=== PATIENT | female | born 1975 | race Caucasian/White ===

== ENCOUNTER 2016-11-10 08:42 | Emergency (ER) | payer BC, OTHER ==
--- NOTE | 2016-11-10 11:37 | RAD ---
Indication: Abdominal pain. Abnormal LFTs. Comparison: July 21, 2015 RIGHT upper quadrant ultrasound. Technique: RIGHT upper quadrant ultrasound. Report: Appropriate direction flow documented in the portal and hepatic veins. 18.2 cm cephalocaudal liver is grossly normal in echotexture and without evidence for focal lesions or biliary dilatation. 3.7 mm common bile duct. Adequately distended gallbladder with normal 2 mm wall is without pathologic finding. The patient felt nauseous while scanning over the gallbladder. Unremarkable pancreas. Negative for ascites. Unremarkable 11.9 cm RIGHT kidney. IMPRESSION: No objective sonographic evidence for gallbladder pathology. The patient did feel nauseous while scanning over the gallbladder. Unremarkable liver.
[2016-11-10 12:00] LABS: Hematocrit 40 % (35-47); Hemoglobin 13.6 g/dl (12.0-16.0); Mean Corpuscular HGB Conc 34 g/dl (31-36); Mean Corpuscular Hemoglobin 31 pg (27-31); Mean Corpuscular Volume 92 fL (80-97); Mean Platelet Volume 7 um3 (7.4-10.4); Red Blood Count 4.33 10^6/ul (4.0-5.4); Red Cell Distribution Width 14 % (10.5-15); White Blood Count 6.9 10^3/ul (3.5-10.8)
[2016-11-10 12:01] LABS: Urine Bilirubin Negative (Negative); Urine Glucose Negative (Negative); Urine Nitrite Negative (Negative)
[2016-11-10 12:27] LABS: Albumin 3.9 g/dL (3.2-5.2); BUN/Creatinine Ratio 11.3 (8-20); C Reactive Protein 3.41 mg/L (< 5.00); Calcium 9.4 mg/dL (8.6-10.3); EGFR African American 117.9 (>60); EGFR Non-African American 91.6 (>60); Globulin 3.3 g/dL (2-4); Potassium 3.5 mmol/L (3.5-5.0); Total Bilirubin 0.4 mg/dL (0.2-1.0); Total Protein 7.2 g/dL (6.4-8.9)
--- NOTE | 2016-11-10 12:40 | RAD ---
HISTORY: Right-sided rib pain, fall COMPARISONS: None VIEWS: 2: Frontal dual-energy and lateral views of the chest. FINDINGS: CARDIOMEDIASTINAL SILHOUETTE: The cardiomediastinal silhouette is normal. ANDREA: The andrea are normal. PLEURA: The costophrenic angles are sharp. No pleural abnormalities are noted. LUNG PARENCHYMA: The lungs are clear. ABDOMEN: The upper abdomen is clear. There is no subphrenic gas. BONES AND SOFT TISSUES: No bone or soft tissue abnormalities are noted. OTHER: None. IMPRESSION: NO ACTIVE CARDIOPULMONARY DISEASE.
--- NOTE | 2016-11-10 14:07 | ED ---
Abdominal Pain/Female - HPI Summary HPI Summary: Patient presents with right upper quadrant and rib pain for 2.5 weeks. She saw her PCP a week ago, who performed blood work at the time and found minimally elevated LFTs with low Vitamin D levels. She has felt somewhat nauseous and is getting over a URI. She denies fever, chills, vomiting, diarrhea or constipation. Deep breaths can make it worse, but fatty meals do not. She has not had pain like this before. The pain does not radiate to her back or chest. She denies trauma, CP, or SOB. - History of Current Complaint Chief Complaint: EDGeneral Stated Complaint: RIGHT SIDE RIB PAIN Time Seen by Provider: 11/10/16 10:24 Hx Obtained From: Patient ?: No Onset/Duration: Gradual Onset Timing: Constant Severity Initially: Moderate Severity Currently: Moderate Pain Intensity: 4 Location: Discrete At: RUQ Radiates: No Character: Dull Aggravating Factor(s): Deep Breaths Alleviating Factor(s): Nothing Allergies/Adverse Reactions: Allergies Allergy/AdvReac Type Severity Reaction Status Date / Time Dextromethorphan Allergy Hives Verified 11/10/16 11:55 [From Tussin-DM] Guaifenesin [From Tussin-DM] Allergy Hives Verified 11/10/16 11:55 PMH/Surg Hx/FS Hx/Imm Hx Previously Healthy: Yes Infectious Disease History: No Infectious Disease History: Denies: Traveled Outside the [place] in Last 30 Days - Social History Occupation: Employed Full-time Lives: With Family Alcohol Use: None Substance Use Type: Reports: Marijuana Substance Use Comment - Amount & Last Used: last used 11/09/2016 Smoking Status (MU): Never Smoked Tobacco Review of Systems Negative: Fever, Chills Negative: Chest Pain Negative: Shortness Of Breath Positive: Abdominal Pain - RUQ and right ribs, Nausea. Negative: Vomiting, Diarrhea Positive: no symptoms reported Negative: Headache, Weakness All Other Systems Reviewed And Are Negative: Yes Physical Exam Triage Information Reviewed: Yes Vital Signs On Initial Exam: Initial Vitals Temp Pulse Resp BP Pulse Ox 97.9 F 80 18 133/85 100 11/10/16 09:19 11/10/16 09:19 11/10/16 09:19 11/10/16 09:19 11/10/16 09:19 Vital Signs Reviewed: Yes Appearance: Positive: Well-Appearing, Well-Nourished, Pain Distress Skin: Positive: Warm, Skin Color Reflects Adequate Perfusion, Dry, Soft Head/Face: Positive: Normal Head/Face Inspection Eyes: Positive: EOMI, TRACIE, Conjunctiva Clear ENT: Positive: Hearing grossly normal, Pharynx normal, TMs normal Neck: Positive: Supple, Nontender, No Lymphadenopathy Respiratory/Lung Sounds: Positive: Clear to Auscultation, Breath Sounds Present Cardiovascular: Positive: RRR Abdomen Description: Positive: Soft. Negative: Nontender - mild TTP RUQ without rebound, CVA Tenderness (R), CVA Tenderness (L), Distended, Guarding, McBurney's Point Tenderness, Splenomegaly Bowel Sounds: Positive: Present Musculoskeletal: Positive: Strength/ROM Intact. Negative: Edema Left, Edema Right Neurological: Positive: Sensory/Motor Intact, Alert, Oriented to Person Place, Time, NV Bundle Intact Distally, Normal Gait Psychiatric: Positive: Affect/Mood Appropriate AVPU Assessment: Alert Diagnostics - Vital Signs Vital Signs Temp Pulse Resp BP Pulse Ox 11/10/16 09:19 97.9 F 80 18 133/85 100 - Laboratory Lab Results: Lab Results 11/10/16 11/10/16 11/10/16 Range/Units 11:36 11:36 11:46 WBC 6.9 (3.5-10.8) 10^3/ul RBC 4.33 (4.0-5.4) 10^6/ul Hgb 13.6 (12.0-16.0) g/dl Hct 40 (35-47) % MCV 92 (80-97) fL MCH 31 (27-31) pg MCHC 34 (31-36) g/dl RDW 14 (10.5-15) % Plt Count 205 (150-450) 10^3/ul MPV 7 L (7.4-10.4) um3 Neut % (Auto) 38.8 (38-83) % Lymph % (Auto) 51.9 H (25-47) % [place] % (Auto) 7.9 (1-9) % Eos % (Auto) 0.8 (0-6) % Baso % (Auto) 0.6 (0-2) % Absolute Neuts (auto) 2.7 (1.5-7.7) 10^3/ul Absolute Lymphs (auto) 3.6 (1.0-4.8) 10^3/ul Absolute Monos (auto) 0.5 (0-0.8) 10^3/ul Absolute Eos (auto) 0.1 (0-0.6) 10^3/ul Absolute Basos (auto) 0 (0-0.2) 10^3/ul Absolute Nucleated RBC 0.01 10^3/ul Nucleated RBC % 0.1 Sodium 137 (133-145) mmol/L Potassium 3.5 (3.5-5.0) mmol/L Chloride 104 (101-111) mmol/L Carbon Dioxide 28 (22-32) mmol/L Anion Gap 5 (2-11) mmol/L BUN 8 (6-24) mg/dL Creatinine 0.71 (0.51-0.95) mg/dL Est GFR ( Amer) 117.9 (>60) Est GFR (Non-Af Amer) 91.6 (>60) BUN/Creatinine Ratio 11.3 (8-20) Glucose 91 (70-100) mg/dL Calcium 9.4 (8.6-10.3) mg/dL Total Bilirubin 0.40 (0.2-1.0) mg/dL AST 49 H (13-39) U/L ALT 60 H (7-52) U/L Alkaline Phosphatase 69 (34-104) U/L C-Reactive Protein 3.41 (< 5.00) mg/L Total Protein 7.2 (6.4-8.9) g/dL Albumin 3.9 (3.2-5.2) g/dL Globulin 3.3 (2-4) g/dL Albumin/Globulin Ratio 1.2 (1-3) Urine Color Yellow Urine Appearance Cloudy Urine pH 6.0 (5-9) Ur Specific [place] 1.019 (1.010-1.030) Urine Protein Negative (Negative) Urine Ketones Negative (Negative) Urine Blood Negative (Negative) Urine Nitrate Negative (Negative) Urine Bilirubin Negative (Negative) Urine Urobilinogen Negative (Negative) Ur Leukocyte Esterase Negative (Negative) Urine Glucose Negative (Negative) Result Diagrams: 11/10/16 11:36 11/10/16 11:36 Lab Statement: Any lab studies that have been ordered have been reviewed, and results considered in the medical decision making process. - Radiology No standard instances Xray Interpretation: No Acute Changes Radiology Interpretation Completed By: Radiologist - Ultrasound No standard instances Ultrasound Interpretation: No Acute Changes Ultrasound Interpretation Completed By: Radiologist Abdominal Pain Fem Course/Dx - Diagnoses Differential Diagnosis: Positive: Appendicitis, Bowel Obstruction, Constipation , Diverticulitis, Gall Bladder Disease, Hepatitis, Irritable Bowel Syndrome, Pancreatitis, Urinary Tract Infection Provider Diagnoses: Abdominal pain Discharge - Discharge Plan Condition: Stable Disposition: HOME Prescriptions: traMADol TAB* [Ultram*] 50 mg PO Q6HR PRN #20 tab MDD 4 PRN Reason: Pain Patient Education Materials: Abdominal Pain (ED) Referrals: Noy Penaloza MD [Primary Care Provider] - Additional Instructions: Please rest, and use Tylenol and Ibuprofen for pain. Follow-up with your primary care provider. Return to the emergency department if your symptoms worsen.
[2016-11-10 17:51] VITALS: BP 126/87
== END 2016-11-10 17:51 | disposition home or self-care (01) ==
LOC: ED 08:42
DX: R10.11 Right upper quadrant pain (principal); R07.81 Pleurodynia
CPT/HCPCS: 36415; 71020; 76705; 80053; 81003; 85025; 86140; 99283

== ENCOUNTER 2018-03-28 08:59 | Day surgery (SDC) | payer BC ==
[~2018-03-28 08:59] MED LIST: Buffered Lidocaine 0.9% SYRIN* 5 ML/SYR SYRINGE INTRADERM ONE; Dexamethasone IV* 4 MG/ML 1 ML (4 MG) IV SLOW PU ONE; Famotidine IV* 10 MG/ML 2 ML (20 mg) IV ONE; Scopolamine 1.5 mg* PATCH TRANSDERM ONE
[2018-03-28] MEDS ORDERED: Dexamethasone IV* 4 MG/ML 1 ML (4 MG) ONE (09:21)
[2018-03-28] MEDS ORDERED: Buffered Lidocaine 0.9% SYRIN* 5 ML/SYR SYRINGE ONE (09:21)
[2018-03-28] MEDS ORDERED: Scopolamine 1.5 mg* PATCH ONE ×2 (09:21→10:24)
[2018-03-28] MEDS ORDERED: Famotidine IV* 10 MG/ML 2 ML (20 mg) ONE (09:21)
[2018-03-28] MEDS ORDERED: ceFAZolin 2 GM PREMIX (*) 2 GM/50 ML BAG IVPB ONE (09:54)
[2018-03-28] MEDS ORDERED: Midazolam* 1 MG/ML 2 ML VIAL (2 MG) ONE ×3 (10:02→12:05)
[2018-03-28] MEDS ORDERED: fentaNYL* 50 MCG/ML 2 ML VIAL (100 MCG VIAL) ONE ×5 (10:02→13:15)
[2018-03-28] MEDS ORDERED: oxyCODONE/Acetamin 5/325 MG* TAB PO PRN (10:16)
[2018-03-28] MEDS ORDERED: PROCHLORPERAZINE INJ 5 MG/ML 2 ML VIAL IV PRN (10:16)
[2018-03-28] MEDS ORDERED: HYDROmorphone INJ* 0.5 MG/0.5 ML SYRINGE IV PRN (10:16)
[2018-03-28] MEDS ORDERED: Acetaminophen IV 1GM/100ML * 1,000 MG/100 ML VIAL IVPB ONE (10:16)
[2018-03-28] MEDS ORDERED: Naloxone* 0.4 MG/ML 1 ML VIAL IV PRN (10:16)
[2018-03-28] MEDS ORDERED: Ondansetron INJ* 2 MG/ML VIAL IV PRN (10:16)
[2018-03-28] MEDS ORDERED: Propofol* 10 MG/ML 20 ML BTL IV PUSH ONE ×2 (11:12→11:29)
[2018-03-28] MEDS ORDERED: Ketorolac INJ* 30 MG/ML 1 ML VIAL ONE (11:29)
[2018-03-28] MEDS ORDERED: Succinylcholine* 20 MG/ML 10 ML VIAL ONE (11:29)
[2018-03-28] MEDS ORDERED: Ondansetron INJ* 2 MG/ML VIAL ONE (11:29)
[2018-03-28] MEDS ORDERED: Bupivacaine 0.5% PF 10 ML VIAL INJ ONE ×2 (11:33)
[2018-03-28] MEDS ORDERED: HYDROmorphone INJ* 0.5 MG/0.5 ML SYRINGE ONE (11:52)
[2018-03-28] MEDS: fentaNYL* 50 MCG/ML 2 ML VIAL (100 MCG VIAL) IV PRN ×5 (12:47→13:19)
[2018-03-28] MEDS ORDERED: Acetaminophen IV 1GM/100ML * 100 ML ONE (12:56)
[2018-03-28] MEDS ORDERED: oxyCODONE TAB* 5 MG TAB ONE (13:10)
[2018-03-28] MEDS: oxyCODONE TAB* 5 MG TAB PO PRN ×2 (13:11→13:12)
[2018-03-28 13:55] VITALS: BP 145/90
--- NOTE | 2018-03-28 14:35 | OP ---
Operative Report - Blank - Operative Report Date of Operation: 03/28/18 Note: PATIENT: Tessy Cee DATE OF : 1975 DATE OF SURGERY: 03/28/2018 SURGEON: Andreas Malik MD CONTACT CENTER ENGINEER: KRYSTEN Rincon, whos assistance was necessary for positioning, retraction, help with instrumentation, and closure. ANESTHESIOLOGIST: Dr. Hensley PREOPERATIVE DIAGNOSIS: Right ankle fracture POSTOPERATIVE DIAGNOSIS: Right ankle fracture OPERATION: 1. Right ankle lateral malleolar fracture open reduction and internal fixation. 2. Stress views performed by surgeon utilizing fluoroscopy under anesthesia. ANESTHESIA: GETA + regional nerve block IMPLANTS: Synthes small fragment plate and 6 screws TOURNIQUET TIME: Less than 1 hour with a well-padded thigh tourniquet at 250mmHg SPECIMENS: none ESTIMATED BLOOD LOSS: minimal COMPLICATIONS: none STATUS: Stable from the operating room to the recovery room and then home. INDICATIONS FOR PROCEDURE: Tessy sustained a closed right ankle fracture hiking. Both operative and non operative treatment alternatives were reviewed. Further, the nature and risks of surgery were reviewed in careful detail, in the office as well as the pre- operative holding area. Our discussions regarding the risks of surgery included , but were not limited to, infection, wound problems, nerve injury, neuroma, RSD , persistent symptoms, blood clot, nonunion, malunion, post-traumatic arthritis , hardware failure, failure of the surgery, and even the remote chance of catastrophic complication, including loss of limb. DESCRIPTION OF PROCEDURE: The patient was seen in the preoperative holding unit and informed written consent was obtained. The appropriate extremity was marked. The patient was then brought to the operating room and carefully positioned on the operating room table. Anesthesia was induced. All bony prominences were padded with great care. A well-padded thigh tourniquet was placed. A chlorhexidine based pre- scrub was performed followed by a chloraprep prep and drape in standard sterile fashion. A surgical safety pause was then conducted in which we confirmed the appropriate patient, extremity, planned procedure, availability of equipment, indication and administration of prophylactic antibiotics, and DVT prophylaxis in the form of a compression boot on the non-surgical extremity. I began with Esmarch exsanguination of the limb and inflated the tourniquet. I then utilized a laterally based incision overlying the distal fibula. Great care was taken to protect the superficial peroneal nerve, which was not visualized within the field of view. I dissected down through the soft tissue layers to expose the distal fibula. I then exposed the fracture. Fracture hematoma was removed. I gained a reduction utilizing a pointed reduction clamp and then held provisionally with the clamp. A 3.5mm cortical lag screw was placed perpendicular to the fracture plane. I placed a 6 hole 1/3 semitubular Synthes small fragment plate laterally and then confirmed the reduction and the position of the plate fluoroscopically. I placed screws to hold the plate to the bone. The provisional fixation was removed and then I again confirmed fluoroscopically the appropriate position of the plate and screw lengths. At this point, I performed a stress fluoroscopic examination. I utilized a Cotton test, as well as an external rotation stress test, to evaluate the distal tib-fib syndesmosis. There was no instability appreciated through the syndesmosis. At this point, we irrigated copiously and then closed in layers meticulously utilizing 3-0 Monocryl for the deep and subdermal layers and 3-0 Nylon for the skin. A sterile dressing was then applied followed by a splint with the ankle in a neutral position. The patient was then awakened from anesthesia and transferred to the recovery room in stable condition. There were no complications. All needle and sponge counts were correct at the end of the case. ATTESTATION: I attest I was present and scrubbed and performed the critical portions of the procedure myself. POSTOPERATIVE PLAN: The postop plan is for [id number] for an anticipated duration of 6 weeks. Follow-up will be in 2 weeks. At that time we will likely transition into a [id number] aircast boot.
--- NOTE | 2018-03-29 15:57 | RAD ---
INDICATION: S 82.61XA COMPARISONS: March 25, 2018 TECHNIQUE: Fluoroscopy was provided for a surgical procedure. Total fluoroscopy time is: 28 seconds FINDINGS: Spot images demonstrate internal fixation of the distal fibula. IMPRESSION: FLUOROSCOPY WAS PROVIDED FOR A SURGICAL PROCEDURE CPT II Codes: G9500
[2018-03-31] MEDS ORDERED: Scopolamine PATCH Remove* 1 NOTE MISC PATCH OFF ONE (08:45)
== END 2018-03-28 14:06 | disposition home or self-care (01) ==
LOC: OR 08:59
PROVIDERS: ATTEND Orthopaedic Surgery
DX: S82.61XA Displaced fracture of lateral malleolus of right fibula, initial encounter for closed fracture (principal); X58.XXXA Exposure to other specified factors, initial encounter; Y93.01 Activity, walking, marching and hiking
CPT/HCPCS: 76001; 81025; A9270-GY; C1713; C1776; J0330; J0690; J1100; J1170; J1885; J2250; J2405; J2704; J3010

== ENCOUNTER 2023-06-06 05:50 | Observation (INO) ==
[~2023-06-06 05:50] MED LIST changes: -Buffered Lidocaine 0.9% SYRIN* 5 ML/SYR SYRINGE INTRADERM ONE; +Chlorhexidine MOUTHWASH 0.12% 15 ML UDC ONE; -Dexamethasone IV* 4 MG/ML 1 ML (4 MG) IV SLOW PU ONE; -Famotidine IV* 10 MG/ML 2 ML (20 mg) IV ONE; -Scopolamine 1.5 mg* PATCH TRANSDERM ONE
[2023-06-06] MEDS ORDERED: Buffered Lidocaine 1% SYRIN 1 ml INTRADERM ONE (06:00)
[2023-06-06] MEDS ORDERED: Lactated Ringers 1000 ml BAG 1,000 ML IV SCH ×2 (06:00→10:00)
[2023-06-06] MEDS ORDERED: ceFAZolin 2 GM in NS PREMIX 2 GM/100 ML BAG IVPB ONE (06:20)
[2023-06-06 06:36] LABS: Rapid COVID-19 Molecular Undetected (Undetected)
[2023-06-06] MEDS ORDERED: Thrombin 5,000 UNITS 1 APPLIC KIT - topical use - TOPICAL ONE (06:49)
[2023-06-06] MEDS ORDERED: Lidocaine 1% w EPI 1:200,000 SDV 30 ML VIAL ONE (06:49)
[2023-06-06] MEDS ORDERED: Gelfoam Sponge SIZE 100 SPONGE ONE (06:50)
[2023-06-06] MEDS ORDERED: ceFAZolin 1 GM ADVAN 1 GM ADDV.VIAL IVPB ONE (06:50)
[2023-06-06] MEDS ORDERED: ceFAZolin VIAL VIAL ONE (06:51)
[2023-06-06] MEDS ORDERED: Propofol 10 MG/ML 20 ML BTL ONE ×2 (06:59→08:04)
[2023-06-06] MEDS ORDERED: Lidocaine 2% PF 5 ML VIAL ONE (06:59)
[2023-06-06] MEDS ORDERED: Dexamethasone IV 4 MG/ML VIAL 1 ml VIAL ONE (06:59)
[2023-06-06] MEDS ORDERED: Rocuronium 50 mg VIAL 10 mg/ml 5 ml VIAL (50 mg) ONE (06:59)
[2023-06-06] MEDS ORDERED: Ondansetron 4 mg VIAL 2 MG/ML 2 ml VIAL ONE (06:59)
[2023-06-06] MEDS ORDERED: Midazolam 2 mg/2 ml VIAL 1 mg/ml 2 ml VIAL (2 mg) ONE (06:59)
[2023-06-06] MEDS ORDERED: fentaNYL 100 mcg/2 ml 50 MCG/ML VIAL ONE ×3 (06:59→10:06)
[2023-06-06] MEDS ORDERED: HYDROmorphone 0.5 MG/0.5 ML SYRINGE ONE ×2 (07:53)
[2023-06-06] MEDS ORDERED: Scopolamine 1 mg/72hr PATCH ONE (07:54)
[2023-06-06] MEDS ORDERED: Acetaminophen IV 1 GM/100ML 1,000 MG/100 ML BAG IV ONE (07:54)
[2023-06-06] MEDS ORDERED: Prochlorperazine 5 mg/ml 2 ml VIAL (10 mg) IV PRN (08:23)
[2023-06-06] MEDS ORDERED: Naloxone 0.4 mg VIAL 0.4 mg/ml 1 ml VIAL IV PRN ×2 (08:23→10:58)
[2023-06-06] MEDS ORDERED: Ondansetron 4 mg VIAL 2 MG/ML 2 ml VIAL IV PRN (09:52)
[2023-06-06] MEDS ORDERED: Senna TAB 8.6 mg TAB PO PRN (09:52)
[2023-06-06] MEDS ORDERED: Morphine 2 MG/ML SYRINGE IV PRN (09:52)
[2023-06-06] MEDS ORDERED: Calcium Carb (TUMS) 500 mg CHEW TAB PO PRN (09:52)
[2023-06-06] MEDS: fentaNYL 100 mcg/2 ml 50 MCG/ML VIAL IV PRN ×4 (10:09→10:21)
[2023-06-06] MEDS ORDERED: HYDROmorphone 1 MG/1 ML SYRINGE ONE ×2 (11:00→11:19)
[2023-06-06] MEDS: HYDROmorphone 1 MG/1 ML SYRINGE IV PRN ×4 (11:02→11:37)
[2023-06-07 11:02] VITALS: BP 113/77
== END 2023-06-07 13:25 | disposition home or self-care (01) ==
LOC: SSU 05:50 → OR 05:50
PROVIDERS: ADMIT Neurological Surgery; ATTEND Neurological Surgery